=== PATIENT | male | born 1960 | race Caucasian/White ===

== ENCOUNTER → 2019-12-06 09:49 | Outpatient (CLI) | payer BC, SELFPAY ==
--- NOTE | ~2019-12-06 | XR_ITS ---
XR thoracic spine 2V 12/06/2019 10:29 Indication: Back pain Procedure: 3 views thoracic spine Comparison: 01/01/2018 Findings: There is levoscoliosis with mild thoracic spondylosis unchanged from prior examination. No paraspinal soft tissue abnormality. Pedicles intact. Vertebral body heights are maintained. Surroundi ng osseous structures are unremarkable. Impression: 1: Mild thoracic spondylosis with levoscoliosis. Reviewed, dictated and finalized at location A. Impression: 1: Mild thoracic spondylosis with levoscoliosis.
--- NOTE | ~2019-12-06 | XR_ITS ---
EXAMINATION: XR ankle LT min 3V DATE: 12/06/2019 10:29 INDICATION: Chronic left ankle pain. Anesthesia/paresthesia. TECHNIQUE: Anteroposterior, oblique, mortise, and lateral views of the left ankle were obtained. COMPARISON: None. FINDINGS: Alignment is normal. No fracture. Joint spaces are well maintained. Possible ankle joint effusion wi th increased density anterior to the tibiotalar joint line. Plantar calcaneal spur. The soft tissues are unremarkable. IMPRESSION: 1. Possible ankle joint effusion. No acute osseous abnormality. Reviewed, dictated and finalized at location A.
--- NOTE | ~2019-12-06 | XR_ITS ---
EXAMINATION: XR_CERV2-3V_CR EXAM DATE: 12/06/2019 10:29 INDICATION: Cervicalgia. TECHNIQUE: Cervical spine frontal, lateral, lateral swimmers, and open-mouth odontoid projections. There is no prior study for comparison. FINDINGS: There is mild to moderate disc disease C5-6 and 6-7, mild reversal of the normal cervical l ordosis at this level. There is 2-3 mm anterolisthesis C4 on C5. The vertebral bodies are otherwise a ligned. Evidence of moderate cervical facet arthropathy and left lower uncovertebral joint arthropath y. The odontoid process is intact. The lateral masses of C1 line up with C2. Prevertebral soft tissu e and pre-dens space are within normal limits. Apices unremarkable. IMPRESSION: Mild to moderate cervical spondylosis. Reviewed, dictated and finalized at location A.
== END ==
PROVIDERS: PCP Family Medicine; Visit Provider Physician Assistant
DX: R20.0 Anesthesia of skin (principal); R20.2 Paresthesia of skin; M25.579 Pain in unspecified ankle and joints of unspecified foot; G89.29 Other chronic pain; M47.894 Other spondylosis, thoracic region; M47.892 Other spondylosis, cervical region
CPT/HCPCS: 72040; 72070; 73610

== ENCOUNTER → 2020-06-18 13:46 | Outpatient (CLI) | payer BC, SELFPAY ==
--- NOTE | ~2020-06-18 | XR_ITS ---
EXAMINATION: XR chest 2V DATE: 06/18/2020 14:00 INDICATION: Other specified symptoms and signs involving the circulatory system. TECHNIQUE: Frontal and lateral views of the chest were obtained. COMPARISON: Thoracic spine radiographs 12/06/2019 FINDINGS: The chest demonstrates clear lungs without pneumonia, pleural effusion, or pneumothorax. Th e heart size is normal. There is mild chronic anterior wedging of multiple midthoracic vertebral bodi es. IMPRESSION: 1. No acute cardiopulmonary disease. Reviewed, dictated and finalized at location A. ET GRINDER
== END ==
PROVIDERS: PCP Family Medicine; Visit Provider Physician Assistant
DX: R09.89 Other specified symptoms and signs involving the circulatory and respiratory systems (principal)
CPT/HCPCS: 71046

== ENCOUNTER 2021-05-20 00:18 | Day surgery (SDC) | payer BC, SELFPAY ==
[2021-05-07 13:58] VITALS: BMI 32.5
--- NOTE | 2021-05-19 13:13 | PM.HPGS ---
History of Present Illness History of Present Illness Consent: Risks, benefits, and alternatives have been discussed and questions answered. Patient agrees to proceed with procedure. Chief complaint: hx of colon polyps Narrative: Michael Zaidi is a 60 year old male referred for colon cancer screening. He had polyps removed about 5 years ago. His mother had colon cancer Review of Systems Review of Systems: All systems reviewed & are unremarkable except as noted in HPI and below PMFSH Past Medical History Medical History Atypical atrial flutter Prostate cancer screening Social History Social History Smoking packs per day: 1 Smoking cigarettes per day: 20.0 Years smoked: 5 Smoking pack-years: 5.00 Smoking status: Never smoker Tobacco type: cigarettes Second hand tobacco smoke exposure: No Alcohol intake: current Alcohol use details: socially Substance use: never Substance use type: does not use Living arrangements: with family Gender identity (if verbalized by the patient): Male Sexual Orientation (if Verbalized by the Patient): Straight or Heterosexual Spiritual care concerns: No Meds Home Medications and Allergies Home Medications Medication Instructions Recorded Confirmed Type omeprazole 20 mg tablet,delayed 20 mg PO DAILY 07/24/20 05/20/21 History release irbesartan 300 mg tablet 300 mg PO DAILY #90 tablet 12/28/20 05/20/21 Rx Allergies Allergy/AdvReac Type Severity Reaction Status Date / Time No Known Allergies Allergy Verified 05/20/21 09:09 Exam Resp: Auscultation: clear to auscultation bilaterally Cardio: Rate: regular rate Rhythm: regular rhythm GI: GI Palp: Yes Soft to palpation and No Tenderness to palpation present (GI) Assessment and Plan Assessment and plan (1) Colon cancer screening: Code(s): Z12.11 - Encounter for screening for malignant neoplasm of colon Status: Acute Assessment and Plan: Colonoscopy with possible biopsy or polypectomy or cautery or injection of substances.
[2021-05-20 09:10] VITALS: BP 139/92; PULSE 90; RESP 20; TEMP 36.5; O2SAT 97; BMI 32.4
[2021-05-20] MEDS: LACTATED RINGERS 1,000 ML 150 ML IV CONT (09:13)
--- NOTE | 2021-05-20 09:49 | P.PNAN_ITS ---
Anes - Initial Pre Proc Eval Procedure: Operation Date: 05/20/21 10:00 Proposed Procedures p Screening Colonoscopy - David Sainz MD Date/Time: 05/20/21 09:49 Surgeon: David Sainz MD Pre Op Diagnosis: hx of colon polyps Patient Data Age: 60 Gender: M Height: 1.75 m Weight: 99.7 kg Last Vital Signs Temp 97.7 F 05/20/21 09:10 Pulse 90 05/20/21 09:10 Resp 20 05/20/21 09:10 BP 139/92 H 05/20/21 09:10 Pulse Ox 97 05/20/21 09:10 Allergies Allergy/AdvReac Type Severity Reaction Status Date / Time No Known Allergies Allergy Verified 05/20/21 09:09 Home Medications Medication Instructions Recorded Confirmed Type omeprazole 20 mg tablet,delayed 20 mg PO DAILY 07/24/20 05/20/21 History release irbesartan 300 mg tablet 300 mg PO DAILY #90 tablet 12/28/20 05/20/21 Rx Patient hx anesthesia problems: none Family hx anesthesia problems: none Results Review: All pre-operative results and documents have been reviewed as part of the pre-operative evaluation. [facility] [place] Past Medical History Medical History Atypical atrial flutter Prostate cancer screening Social History Social History Smoking packs per day: 1 Smoking cigarettes per day: 20.0 Years smoked: 5 Smoking pack-years: 5.00 Smoking status: Never smoker Tobacco type: cigarettes Second hand tobacco smoke exposure: No Alcohol intake: current Alcohol use details: socially Substance use: never Substance use type: does not use Living arrangements: with family Gender identity (if verbalized by the patient): Male Sexual Orientation (if Verbalized by the Patient): Straight or Heterosexual Spiritual care concerns: No Anes - Eval Final PreProcedure Day of Procedure 05/20/21 09:49 Patient weight: obese Heart: regular rate and rhythm Lungs: clear to auscultation Airway: Mallampati scale class II Neurological: alert and oriented Last oral intake: >/= 8 hours ASA classification: III Emergent: no Anesthetic plan: proceed Anesthesia type and monitoring: general GIVS and standard monitoring Results Review: All pre-operative results and documents have been reviewed as part of the pre-operative evaluation. Informed Consent: The patient's anesthetic plan and its attendant risks and benefits were discussed with the patient/family/POA. Questions were solicited and answers provided to the satisfaction of the patient/family/POA.
[2021-05-20 10:19] VITALS: BP 109/71; PULSE 94; RESP 21; O2SAT 99
[2021-05-20 10:29] VITALS: BP 117/72; PULSE 90; RESP 17; O2SAT 96
[2021-05-20 10:39] VITALS: BP 121/88; PULSE 74; RESP 22; O2SAT 96
== END 2021-05-20 10:40 | disposition home or self-care (01) ==
PROVIDERS: PCP Family Medicine; Visit Provider Internal Medicine Gastroenterology
PROC: 0DJD8ZZ Inspection of Lower Intestinal Tract, Via Natural or Artificial Opening Endoscopic (ICD-10-PCS; CPT 45378; principal; 2021-05-20 10:00)
DX: Z12.11 Encounter for screening for malignant neoplasm of colon (principal); K57.30 Diverticulosis of large intestine without perforation or abscess without bleeding; K63.5 Polyp of colon; D17.5 Benign lipomatous neoplasm of intra-abdominal organs; Z80.0 Family history of malignant neoplasm of digestive organs; E66.9 Obesity, unspecified; Z68.32 Body mass index [BMI] 32.0-32.9, adult
CPT/HCPCS: 45380; 88305; J2704; J7120

== ENCOUNTER → 2021-08-07 11:25 | Outpatient (CLI) | payer BC, SELFPAY ==
--- NOTE | ~2021-08-07 | XR_ITS ---
XR knee LT min 4V DATE: 08/07/2021 11:56 INDICATION: Left knee pain TECHNIQUE: 4 views COMPARISON: None FINDINGS: No fracture or dislocation, periosteal reaction or bone destruction. Minimal periarticular spurring of the patella consistent with mild osteoarthritis. Medial and lateral compartment and patellofemoral compartment joint spaces appear well preserved. No radiopaque intra-articular loose body or chondrocalcinosis. 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
== END ==
PROVIDERS: PCP Family Medicine; Visit Provider Physician Assistant
DX: M25.562 Pain in left knee (principal); M25.462 Effusion, left knee; M17.12 Unilateral primary osteoarthritis, left knee
CPT/HCPCS: 73564

== ENCOUNTER → 2022-01-11 12:01 | Outpatient (CLI) | payer BC, SELFPAY ==
--- NOTE | ~2022-01-11 | XR_ITS ---
EXAMINATION: XR abdomen/kub 1V DATE: 01/11/2022 12:17 INDICATION: Constipation. TECHNIQUE: A supine view of the abdomen on 2 radiographs was obtained. COMPARISON: None. FINDINGS: There are no dilated loops of bowel. There is a small volume of stool in the colon. No free intraperitoneal gas. Calcifications in left pelvis are likely phleboliths. IMPRESSION: 1. Normal bowel gas pattern. Reviewed, dictated and finalized at location B.
== END ==
PROVIDERS: PCP Family Medicine; Visit Provider Physician Assistant
DX: R10.9 Unspecified abdominal pain (principal); Z79.01 Long term (current) use of anticoagulants; K59.00 Constipation, unspecified
CPT/HCPCS: 74018

== ENCOUNTER → 2022-01-11 13:44 | Outpatient (CLI) | payer BC, SELFPAY ==
--- NOTE | ~2022-01-11 | CT_ITS ---
EXAMINATION: CT abdomen pelvis wo con DATE: 01/11/2022 14:00 INDICATION: Constipation. Abdomen pain. Fever. Night sweats. TECHNIQUE: Computed tomography (CT) of the abdomen and pelvis was performed without intravenous contr ast. The dose-length product was 921.54 mGy-cm. Automated exposure control and iterative reconstructi on technique were employed. COMPARISON: None. FINDINGS: Lung bases are unremarkable. Heart size normal. No significant pleural or pericardial effus ion. No significant vascular abnormality. No lymphadenopathy. There are multiple liver cysts. The spl een, pancreas, adrenal glands and kidneys are unremarkable. There is colonic diverticulosis. There is thickening of the sigmoid colon with adjacent fluid and phlegmonous change, compatible with acute di verticulitis with peridiverticular abscess. Bladder wall is mildly prominent, although decompressed. IMPRESSION: 1. Acute sigmoid diverticulitis with peridiverticular abscess. Reviewed, dictated and finalized at location A.
== END ==
PROVIDERS: PCP Physician Assistant; Visit Provider Physician Assistant
DX: K59.00 Constipation, unspecified (principal); R10.9 Unspecified abdominal pain; R50.9 Fever, unspecified; R61 Generalized hyperhidrosis; K57.32 Diverticulitis of large intestine without perforation or abscess without bleeding
CPT/HCPCS: 74176

== ENCOUNTER → 2022-01-17 12:25 | Outpatient (CLI) | payer BC, SELFPAY ==
--- NOTE | ~2022-01-17 | CT_ITS ---
EXAMINATION: CT abdomen pelvis wo con DATE: 01/17/2022 12:54 INDICATION: Acute diverticulitis with abscess TECHNIQUE: Computed tomography (CT) of the abdomen and pelvis was performed without intravenous contr ast. The dose-length product (DLP) was 947.93 mGy-cm. Automated exposure control and iterative recons truction technique were employed. COMPARISON: 01/11/2022 FINDINGS: The lung bases are clear. The heart size is normal. There are multiple cysts of the liver m easure measure up to 4.2 cm in the left hepatic lobe. The spleen, pancreas, gallbladder, and adrenal glands are normal. The kidneys are unremarkable. No pathologically enlarged abdominal or pelvic lymph nodes are identified. There is a perforated sigmoid diverticulitis. The previously described perisig moid abscess has slightly decreased in size. The fluid component has been largely replaced with gas. There is a persistent 2.7 x 1.3 cm fluid collection situated between the sigmoid colon and rectum on image 94. The appendix is normal. There are no dilated loops of bowel. There is mild lumbar spondylos is. There is a left inguinal hernia containing fat. IMPRESSION: 1. Persistent perforated sigmoid diverticulitis with perisigmoid abscess with slight decrease in size of the abscess and replacement of and much of the previously described fluid component with free air . Reviewed, dictated and finalized at location A. IMPRESSION: 1. Persistent perforated sigmoid diverticulitis with perisigmoid abscess with s light decrease in size of the abscess and replacement of and much of the previo usly described fluid component with free air.
== END ==
PROVIDERS: PCP Physician Assistant; Visit Provider Physician Assistant
DX: K57.32 Diverticulitis of large intestine without perforation or abscess without bleeding (principal); K63.0 Abscess of intestine
CPT/HCPCS: 74176

== ENCOUNTER → 2022-01-24 10:50 | Outpatient (CLI) | payer BC, SELFPAY ==
--- NOTE | ~2022-01-24 | CT_ITS ---
EXAMINATION: CT abdomen pelvis wo con DATE: 01/24/2022 11:03 INDICATION: Diverticulitis. TECHNIQUE: Computed tomography (CT) of the abdomen and pelvis was performed without intravenous contr ast. Automated exposure control and iterative reconstruction technique were employed. The dose-length product was 867.67 mGy-cm. COMPARISON: CT abdomen and pelvis 01/17/2022 FINDINGS: The visualized portions of the lung bases demonstrate mild atelectasis. There is mild bronc hiectasis bilaterally. No pleural effusion. The heart size is normal. No pericardial effusion. There are cysts in the liver measuring up to 4.2 cm. The gallbladder, spleen, pancreas, adrenal glands, and kidneys are normal. There is no urolithiasis. There is a left inguinal hernia containing fat. The pr ostate is mildly enlarged. There are scattered diverticula in the colon. There is fat stranding adjac ent to the sigmoid colon with foci of extraluminal gas and trace fluid, consistent with diverticuliti s. There are no dilated loops of bowel. The appendix is normal. There are no pathologically enlarged lymph nodes. There is no free intraperitoneal fluid. There is moderate lumbar spondylosis. IMPRESSION: 1. Sigmoid diverticulitis with microperforation with slight improvement. No drainable abscess. Reviewed, dictated and finalized at location B. IMPRESSION: 1. Sigmoid diverticulitis with microperforation with slight improvement. No mk inable abscess.
== END ==
PROVIDERS: PCP Family Medicine; Visit Provider Physician Assistant
DX: K57.20 Diverticulitis of large intestine with perforation and abscess without bleeding (principal)
CPT/HCPCS: 74176

== ENCOUNTER → 2022-01-31 08:50 | Outpatient (CLI) | payer BC, SELFPAY ==
--- NOTE | ~2022-01-31 | CT_ITS ---
EXAMINATION: CT abdomen pelvis wo con DATE: 01/31/2022 09:12 INDICATION: Diverticulitis of intestine, part unspecified, without perforation. TECHNIQUE: Computed tomography (CT) of the abdomen and pelvis was performed without intravenous contr ast. Automated exposure control and iterative reconstruction technique were employed. The dose-length product was 953.50 mGy-cm. COMPARISON: CT abdomen and pelvis 01/24/2022 FINDINGS: The visualized portions of the lung bases are clear without pneumonia or pleural effusion. The heart size is normal. No pericardial effusion. There are cysts in the liver measuring up to 4.1 c m. The gallbladder, spleen, pancreas, adrenal glands, and kidneys are normal. There is no urolithiasi s. There are scattered diverticula in the colon. Again seen is extraluminal gas in the perisigmoid re gion associated with fat stranding. The volume of gas has increased. No drainable fluid. The appendix is normal. There are no dilated loops of bowel. There are no pathologically enlarged lymph nodes. Th ere is no free intraperitoneal fluid. There is a left inguinal hernia containing fat. There is severe lumbar spondylosis. There is thoracolumbar dextroscoliosis. IMPRESSION: 1. Sigmoid diverticulitis with microperforation, stable from 01/24/2022. No drainable abscess. Reviewed, dictated and finalized at location A. IMPRESSION: 1. Sigmoid diverticulitis with microperforation, stable from 01/24/2022. No mk inable abscess.
== END ==
PROVIDERS: PCP Family Medicine; Visit Provider Physician Assistant
DX: K57.20 Diverticulitis of large intestine with perforation and abscess without bleeding (principal)
CPT/HCPCS: 74176

== ENCOUNTER → 2022-02-25 10:22 | Outpatient (CLI) | payer BC, SELFPAY ==
--- NOTE | ~2022-02-25 | CT_ITS ---
EXAMINATION: CT abdomen pelvis wo con DATE: 02/25/2022 10:37 INDICATION: Acute diverticulitis TECHNIQUE: Computed tomography (CT) of the abdomen and pelvis was performed without intravenous contr ast. The dose-length product (DLP) was 904.77 mGy-cm. Automated exposure control and iterative recons truction technique were employed. COMPARISON: 01/31/2022 FINDINGS: The lung bases are clear. The heart size is normal. Multiple cysts of the liver measure up to 4.1 cm in the left hepatic lobe. The spleen, pancreas, gallbladder, and adrenal glands are normal. The kidneys are unremarkable. No pathologically enlarged abdominal or pelvic lymph nodes are identif ied. There are no dilated loops of bowel. There is persistent inflammatory change with tiny foci of e xtraluminal gas adjacent to the sigmoid colon. Overall volume of extraluminal gas and inflammatory ch terese has decreased since the comparison examination. There is no extraluminal fluid collection. There is severe lumbar spondylosis. There is a left inguinal hernia containing fat. IMPRESSION: 1. Perforated sigmoid diverticulitis with interval improvement since the comparison examination, as e videnced by less extraluminal gas and less perisigmoid inflammatory change. No drainable fluid. Reviewed, dictated and finalized at location F. GRADER IMPRESSION: 1. Perforated sigmoid diverticulitis with interval improvement since the compar payton examination, as evidenced by less extraluminal gas and less perisigmoid in flammatory change. No drainable fluid.
== END ==
PROVIDERS: PCP Family Medicine; Visit Provider Physician Assistant
DX: K57.92 Diverticulitis of intestine, part unspecified, without perforation or abscess without bleeding (principal)
CPT/HCPCS: 74176

== ENCOUNTER → 2022-04-05 14:25 | Outpatient (CLI) | payer BC, SELFPAY ==
--- NOTE | ~2022-04-05 | CT_ITS ---
Non-contrast CT scan of the Abdomen and Pelvis Clinical indication: Diverticulitis Technique: 5 mm axial scans were obtained through the abdomen and pelvis without intravenous or oral contrast. Dose reduction technique was used on this scan by utilizing automated exposure control and iterative reconstruction technique. The dose-length product (DLP) was 927.81 mGy-cm. COMPARISON: 02/25/2022 Findings: Images through the lung bases reveal no abnormalities. The liver, spleen, pancreas, gallbladder, kidneys, and adrenals appear normal. There is no aortic an eurysm. There is no evidence of bowel obstruction. Persistent wall thickening of the mid to distal sigmoid co rad present. There is a persistent contained perforation/sinus tract extending from the sigmoid colon superiorly (axial images 89-97), similar to prior exam. No drainable fluid collection evident. Images through the pelvis were performed. There is no evidence of ascites or lymphadenopathy. Urinary bladder unremarkable. Prostate gland and seminal vesicles are unremarkable. Small fat-containing lef t inguinal hernia present. Impression: Persistent contained perforation/sinus tract extending from the sigmoid colon, as detailed above, com patible with sequela of underlying diverticulitis. No drainable fluid collection. Small fat-containing left inguinal hernia. Reviewed, dictated and finalized at location . Impression: Persistent contained perforation/sinus tract extending from the sigmoid colon, as detailed above, compatible with sequela of underlying diverticulitis. No mk inable fluid collection. Small fat-containing left inguinal hernia.
== END ==
PROVIDERS: PCP Family Medicine; Visit Provider Physician Assistant
DX: K57.92 Diverticulitis of intestine, part unspecified, without perforation or abscess without bleeding (principal); K40.90 Unilateral inguinal hernia, without obstruction or gangrene, not specified as recurrent
CPT/HCPCS: 74176

== ENCOUNTER 2022-06-17 16:36 | Outpatient (CLI) | payer BC, SELFPAY | END 2022-06-17 16:37 | disposition home or self-care (01) | LOC: ANHLAB 16:37 | PROVIDERS: PCP Family Medicine; Visit Provider Physician Assistant | DX: R19.7 Diarrhea, unspecified (principal) | CPT/HCPCS: 87045; 87177; 87209; 87427; 87493; 89055 ==

== ENCOUNTER → 2023-05-24 15:31 | Outpatient (CLI) | payer BC, SELFPAY ==
--- NOTE | ~2023-05-24 | XR_ITS ---
XR ribs BI 3V w CXR 2V DATE: 05/24/2023 16:02 INDICATION: Back pain TECHNIQUE: PA and lateral chest COMPARISON: None FINDINGS: Normal heart size. Mild aortic tortuosity. No hilar or mediastinal enlargement. No pulmonary infiltrate or consolidation, pleural effusion or pulmonary vascular congestion or pneumo thorax. No left or right rib fracture or bone destruction is detected. Scoliosis and degenerative change of the thoracic spine. IMPRESSION: No active cardiopulmonary disease Reviewed, dictated and finalized at location B. 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
--- NOTE | ~2023-05-24 | XR_ITS ---
XR thoracic spine 2V DATE: 05/24/2023 16:02 INDICATION: Back pain TECHNIQUE: AP, lateral and swimmer views COMPARISON: None FINDINGS: There is 13 degrees levoscoliosis measured from T1 to T5. There is 8 degrees dextroscoliosis measured from T12 to T7. There is 17 degrees levoscoliosis measured from T7 to T12. There is osteopenia. No fracture or dislocation or bone destruction is detected. Mild degenerative spurring. No paraspinal soft tissue thickening. IMPRESSION: Osteopenia Scoliosis Mild degenerative change Reviewed, dictated and finalized at location B. 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
== END ==
PROVIDERS: PCP Physician Assistant; Visit Provider Physician Assistant
DX: M54.9 Dorsalgia, unspecified (principal); M85.88 Other specified disorders of bone density and structure, other site; M41.9 Scoliosis, unspecified
CPT/HCPCS: 71046; 71110; 72070

== ENCOUNTER 2023-08-16 15:17 | Outpatient (CLI) | payer BC, SELFPAY ==
--- NOTE | ~2023-08-16 | XR_ITS ---
EXAMINATION: XR chest 2V DATE: 08/16/2023 15:34 INDICATION: Cough and low-grade fever TECHNIQUE: PA and lateral views of the chest were obtained. COMPARISON: Chest radiograph dated 05/24/2023 FINDINGS: Unchanged mild streaky lingula atelectasis/scarring at the anterolateral left lung base. No other air space opacities, pulmonary edema, pleural effusion or pneumothorax. The cardiomediastinal silhouette is normal. Moderate thoracic spondylosis with mild S-shaped curvature of the lower thoracic and upper lumbar spine. IMPRESSION: 1. Unchanged minimal lingular atelectasis/scarring. No other acute cardiopulmonary disease. Reviewed, dictated and finalized at location A. IMPRESSION: 1. Unchanged minimal lingular atelectasis/scarring. No other acute cardiopulmon pradeep disease.
== END 2023-08-16 15:18 | disposition home or self-care (01) ==
LOC: ANHIMG 15:19
PROVIDERS: PCP Physician Assistant; Visit Provider Physician Assistant Medical
DX: R05.9 Cough, unspecified (principal); R52 Pain, unspecified; R68.83 Chills (without fever)
CPT/HCPCS: 71046

== ENCOUNTER 2023-12-18 11:57 | Outpatient (CLI) | payer BC, SELFPAY ==
--- NOTE | ~2023-12-18 | DEXA_ITS ---
Bone Density Report Name: ADAL FRENCH Age: 63 Sex: Male Ethnicity: White Date of : 1960 Indication: Referring Provider: TONI YUN Study: Bone densitometry was performed. Exam Date: December 18, 2023 Accession number: [id number] Bone Density: Region BMD T-score Z-score Classification AP Spine(L1-L4) 1.172 0.7 1.4 Normal Femoral Neck (Left) 0.915 -0.1 0.9 Normal Total Hip (Left) 1.031 0.0 0.5 Normal Femoral Neck (Right) 0.950 0.1 1.1 Normal Total Hip (Right) 1.058 0.2 0.7 Normal Femoral Neck Mean 0.933 0.0 1.0 Normal Total Hip Mean 1.044 0.1 0.6 Normal World Health Organization criteria for BMD impression classify patients as: Normal (T-score at or above -1.0), Osteopenia (T-score between -1.0 and -2.5), or Osteoporosis (T-score at or below -2.5). 10-year Fracture Risk: FRAX not reported because: All T-scores for Spine Total, Hip Total, Femoral Neck at or above -1.0 Clinical Information Provided by Patient: Has 3 or more alcoholic drinks per day Patient maximum height was 70 No regular weight bearing exercise Drinks caffeinated beverages Impression: The patient has normal bone mass. The patient has risk factors, including: excessive alcohol use. Discussion: BONE DENSITY IS ABOVE THE MINIMUM DESIRABLE LEVEL AT ALL SKELETAL SITES TESTED. This patient?s bone mineral density is above the minimum desirable level (T-score -1.0 or better) at all sites measured. The patient should follow a healthful lifestyle (good nutrition with adequate calcium and vitamin D, and appropriate weight-bearing exercise). Follow-Up: Consider repeating this study in 5 years or sooner if there is some new clinical indication. Reported by: AFUA on 12/26/2023 11:28:00 AM. Reviewed, dictated and finalized at location A.
== END 2023-12-18 11:58 | disposition home or self-care (01) ==
LOC: CHSIMG 11:58
PROVIDERS: PCP Family Medicine; Visit Provider Physician Assistant Medical
DX: M85.88 Other specified disorders of bone density and structure, other site (principal)
CPT/HCPCS: 77080